=== PATIENT | female | born 1950 | race Hispanic/Latino ===

== ENCOUNTER 2017-09-11 06:04 | Day surgery (SDC) | payer OTHER, MEDICARE ==
[2017-09-08 10:22] VITALS: BP 144/66
[2017-09-08 10:29] LABS: BASOPHILS % (AUTO) 0.6 % (0.0-5.0); EOSINOPHILS % (AUTO) 3.8 % (0.0-8.0); HEMATOCRIT 35.4 % (36-48); MEAN CORPUSCULAR HEMOGLOBIN 29.2 pg (27.0-33.0); MEAN CORPUSCULAR HGB CONC 34.3 g/dL (32.0-36.0); MEAN CORPUSCULAR VOLUME 85.3 fL (79-99); NEUTROPHILS % (AUTO) 38.6 % (40.0-77.0); PLATELET COUNT (AUTO) 260 K/uL (130-400); RED BLOOD CELL COUNT(AUTO) 4.15 MIL/uL (4.00-5.50); RED CELL DISTRIBUTION WIDTH 13.3 % (11.0-15.5); WHITE BLOOD COUNT (AUTO) 5.6 K/uL (4.8-10.8)
[2017-09-08 10:43] LABS: CREATININE 0.6 mg/dL (0.5-1.5); POTASSIUM 4.1 mmol/L (3.5-5.1)
[~2017-09-11] VITALS: Ht 160 cm; Wt 67.6 kg
[2017-09-11] VITALS (18 sets, daily range): BP systolic 115–169; BP diastolic 37–74
[~2017-09-11 06:04] MED LIST: ASPI-1181 PO; ATOR40TA71 PO; LEVO5TAB13 PO; METO25TA6 PO
[2017-09-11] MEDS ORDERED: CEFAZOLIN SODIUM 1 GM VIAL ONE (06:36)
[2017-09-11] MEDS ORDERED: LACTATED RINGERS 1000ML 1,000 ML IV ONE (06:36)
[2017-09-11] MEDS ORDERED: WATER FOR INJECTION,STERILE 20 ML VIAL ONE (06:37)
[2017-09-11] MEDS ORDERED: SUCCINYLCHOLINE 200MG/10ML SYR ONE (06:59)
[2017-09-11] MEDS ORDERED: NEOSTIGMINE METHYLSULFATE 1MG/ML IV ONE (06:59)
[2017-09-11] MEDS ORDERED: LIDOCAINE PF 2% 5ML ABBOJECT ONE (06:59)
[2017-09-11] MEDS ORDERED: DEXAMETHASONE SOD PHOSPHATE 10MG/ML 1ML VIAL ONE (06:59)
[2017-09-11] MEDS ORDERED: PROPOFOL 10 MG/ML 20ML VIAL IV ONE (06:59)
[2017-09-11] MEDS ORDERED: GLYCOPYRROLATE 0.2 MG/ML 5 ML VIAL ONE (06:59)
[2017-09-11] MEDS ORDERED: ONDANSETRON HCL 4 MG/2 ML VIAL ONE (06:59)
[2017-09-11] MEDS ORDERED: FENTANYL CITRATE PF 50 MCG/1 ML 5ML AMP IV ONE (07:00)
[2017-09-11] MEDS ORDERED: MIDAZOLAM HCL 1 MG/ML 2ML VIAL ONE (07:00)
[2017-09-11] MEDS ORDERED: ROCURONIUM BROMIDE 10MG/1ML 5ML VL ONE (07:22)
[2017-09-11] MEDS ORDERED: EPHEDRINE SULFATE 50 MG/ML AMPULE ONE (07:26)
[2017-09-11] MEDS ORDERED: MEPERIDINE-PF 25 MG/ML SYG ONE (08:39)
[2017-09-11] MEDS ORDERED: CALDOLOR 800MG+NS 250ML 250 ML IV ONE (08:39)
[2017-09-12] MEDS ORDERED: CEFAZOLIN SODIUM 1 GM VIAL IVP ONE (08:00)
[2017-09-12] MEDS ORDERED: WATER FOR INJECTION,STERILE 20 ML VIAL IJ ONE (08:00)
== END 2017-09-11 13:10 | disposition home or self-care (01) ==
LOC: DAH 06:04
DX: N81.10 Cystocele, unspecified (principal); N81.6 Rectocele; E78.5 Hyperlipidemia, unspecified; I25.10 Atherosclerotic heart disease of native coronary artery without angina pectoris; I10 Essential (primary) hypertension; K21.9 Gastro-esophageal reflux disease without esophagitis; Z95.1 Presence of aortocoronary bypass graft; Z98.890 Other specified postprocedural states; Z90.49 Acquired absence of other specified parts of digestive tract; Z90.710 Acquired absence of both cervix and uterus; Z82.49 Family history of ischemic heart disease and other diseases of the circulatory system
CPT/HCPCS: 36415; 57260; 80048; 85025; A4344; A4351; A4510; A4600; A5113; J0330; J0690; J1100; J1741; J2001; J2175; J2250; J2405; J2704; J2710; J3010; J3490 ×3; J7120

== ENCOUNTER 2020-02-17 06:43 | Day surgery (SDC) | payer OTHER, MEDICARE ==
[~2020-02-17] VITALS: Ht 157.5 cm; Wt 65.8 kg
[~2020-02-17 06:43] MED LIST changes: -ASPI-1181 PO; +ASPI-1443 PO; +SODIUM CHLORIDE 0.9% 1000ML 1,000 ML IV ONE
[2020-02-17 07:45] VITALS: BP 124/63
[2020-02-17] MEDS ORDERED: ROSU5TAB12 PO (09:34)
[2020-02-17] MEDS ORDERED: QUET25TA74 PO (09:34)
[2020-02-17] MEDS ORDERED: PROPOFOL 10 MG/ML 20ML VIAL IV ONE ×2 (09:44)
[2020-02-17 10:15] VITALS: BP 111/57
[2020-02-17 10:20] VITALS: BP 114/57
[2020-02-17 10:25] VITALS: BP 129/69
[2020-02-17 10:30] VITALS: BP 132/70
[2020-02-17 10:35] VITALS: BP 148/71
== END 2020-02-17 10:55 | disposition home or self-care (01) ==
LOC: ENDO 06:43 → DAH 06:43 → ENDO 10:55
PROVIDERS: ATTEND Internal Medicine
DX: Z12.11 Encounter for screening for malignant neoplasm of colon (principal); D12.2 Benign neoplasm of ascending colon; K29.50 Unspecified chronic gastritis without bleeding; K57.30 Diverticulosis of large intestine without perforation or abscess without bleeding; K22.8 Other specified diseases of esophagus; K31.89 Other diseases of stomach and duodenum; I10 Essential (primary) hypertension; E78.5 Hyperlipidemia, unspecified; F32.9 Major depressive disorder, single episode, unspecified; I25.10 Atherosclerotic heart disease of native coronary artery without angina pectoris; Z86.010 Personal history of colon polyps; Z11.59 Encounter for screening for other viral diseases
CPT/HCPCS: 36415; 43239; 45380; 88305; 88342; 93005; A4215; A4221; A4222; A4223; A4606; A4620; A4663; J2704 ×2; J7030; U0003; 43200

== ENCOUNTER → 2021-03-28 | Outpatient (CLI) | payer OTHER, MEDICARE ==
[~2021-03-28] MED LIST changes: -ASPI-1443 PO; -ATOR40TA71 PO; +DEXAMETHASONE SOD PHOSPHATE 10MG/ML 1ML VIAL ONE; +FENTANYL CITRATE PF 50 MCG/1 ML 2ML VIAL ONE; +GLYCOPYRROLATE 1 MG/5 ML SYRINGE ONE; -LEVO5TAB13 PO; +LIDOCAINE PF 100MG/5ML (2%) SYRINGE 5ML ONE; +MIDAZOLAM HCL 1 MG/ML 2ML VIAL ONE; +NEOSTIGMINE 5MG/5ML SYR IV ONE; +ONDANSETRON 4MG INJ ONE; +PROPOFOL 10 MG/ML 20ML VIAL IV ONE; +QUET25TA34 PO; +ROCURONIUM 10MG/1ML SYR 10 MG/ML ML ONE; +ROSU5TAB12 PO; -SODIUM CHLORIDE 0.9% 1000ML 1,000 ML IV ONE; +SUCCINYLCHOLINE CHLORIDE 20 MG/ML 10 ML VIAL ONE
== END | disposition home or self-care (01) ==
LOC: RAH 08:53
PROVIDERS: ATTEND Family Medicine
DX: K76.0 Fatty (change of) liver, not elsewhere classified (principal); N32.81 Overactive bladder; R10.2 Pelvic and perineal pain; Z90.49 Acquired absence of other specified parts of digestive tract; Z90.710 Acquired absence of both cervix and uterus
CPT/HCPCS: 76700; 76856; J0330; J1100; J2001; J2250; J2405; J2704; J2710; J3010; J3490